=== PATIENT | male | born 1950 | race Caucasian/White ===

== ENCOUNTER 2017-05-03 07:59 | Day surgery (SDC) | payer MEDICARE, BC ==
[~2017-05-03 07:59] MED LIST: RINGERS SOLUTION,LACTATED 1,000 ML IV PRN
--- OUTSIDE RECORDS SUMMARY | 2017-05-03 08:03 | XMS REPORT | Continuity of Care Document ---
:1950 Author Organization [facility] [place] [place] [address] Care Team Providers Name Role Phone Renato Dobbins A Primary Care Provider [phone] Source Comments This disclosure is being made pursuant to the [employer] program and maynot contain all information available regarding this patient.[facility] Active Allergies and Adverse Reactions Allergen Noted Date Severity Reactions Comments Ibuprofen 10/22/2016 High Hives Current Medications Be aware that medications may not be up to date as of this document. Alwaysverify current medications with the patient. Prescription Sig. Disp. Refills Start Date End Date Status tiotropium (SPIRIVA) 18 Place 18 mcg into Active MCG inhalation capsule inhaler and inhale daily. omeprazole (PRILOSEC) Take 20 mg by mouth 2 Active 20 MG capsule (two) times daily. predniSONE (DELTASONE) Take 10 mg by mouth Active 10 MG tablet daily. Indications: Chronic Bronchitis with Asthma mometasone-formoterol Inhale 1 puff into Active (DULERA) 100-5 MCG/ACT the lungs 2 (two) AERO inhaler times daily. EPINEPHrine (EPIPEN 0.3 mg. 06/27/2016 Active 2-TEODORO) 0.3 MG/0.3ML SOAJ injection fluticasone (VERAMYST) use 2 Sprays into Active 27.5 MCG/SPRAY nasal both nostrils daily. spray montelukast (SINGULAIR) Take 10 mg by mouth. 09/03/2016 Active 10 MG tablet mometasone-formoterol Inhale into the 05/03/2016 Active (DULERA) 200-5 MCG/ACT lungs. AERO inhaler DULERA 200-5 MCG/ACT 10/15/2016 Active AERO inhaler predniSONE (DELTASONE) Take 7.5 mg (1 & 1/2 03/01/2016 Active 5 MG tablet pills) for 2 months, then 5mg (1 pills) until see Dr Polanco again clonazePAM (KLONOPIN) 08/31/2016 Active 0.5 MG tablet VERAMYST 27.5 MCG/SPRAY 08/28/2016 Active nasal spray FLUZONE HIGH-DOSE 0.5 08/30/2016 Active ML TORIE injection montelukast (SINGULAIR) 10/03/2016 Active 10 MG tablet predniSONE (DELTASONE) 09/02/2016 Active 5 MG tablet Active Problems Not on file Social History Tobacco Use Types Packs/Day Years Used Date Never Smoker Plan of Care Health Maintenance Due Date Last Done Comments Tetanus/Pertussis (1 - Tdap) 1968 Colonoscopy 1999 Well Adult Visit 1999 Zoster Vaccine 60+ 2009 Pneumococcal Low/Medium Risk 65+ (1 of 2 - PCV13) 2014 Influenza Immunization (#1) 2016 Results from Last 3 Months Not on file
--- OUTSIDE RECORDS SUMMARY | 2017-05-03 08:04 | XMS REPORT | Continuity of Care Document ---
:1950 Author Organization [facility] ([facility]) Address [address] [place] [address] Phone [phone] Care Team Providers Name Role Phone DobbinsRenato Primary Care Provider [phone] Source Comments This disclosure is being made pursuant to the Care Everywhere program, applicable federal and state laws, and may not contain all informaitonavailable regarding this patient.[facility] ([facility]) Active Allergies and Adverse Reactions Allergen Noted Date Severity Reactions Comments Ibuprofen 03/13/2016 Urticaria (Hives),Pruritus,Angioedema Current Medications Prescription Sig. Disp. Refills Start Date End Date Status EPIPEN 2-TEODORO 0.3 0.3 mg as needed. 06/27/2016 Active mg/0.3 mL injection syringe montelukast 10 mg Take 1 tablet (10 30 tablet 09/03/2016 Active tablet mg total) by mouth daily. predniSONE 5 mg Take 1 tablet (5 mg 30 tablet 5 11/01/2016 Active tablet total) by mouth daily. albuterol 90 Use 1-2 Puffs by 8.5 g 03/12/2017 Active mcg/Actuation inhaler inhalation every 4 hours as needed. fluticasone-vilantero Use 1 Puff by 60 Each 11 03/12/2017 Active l (BREO ELLIPTA) inhalation daily. 200-25 mcg/dose inhaler clonazePAM 0.5 mg Take 1 tablet (0.5 30 tablet 5 03/25/2017 Active tablet mg total) by mouth at bedtime. 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 Therefore, serum specific IgE was obtained to molds and returned negative. Intradermals to molds performed on 08/02/2014 were negative. A maxillofacial sinus CT on 04/13/2014 showed diffuse paranasal sinus opacification with areas of large density consistent with inspissated secretions. MRI of face/sinus with and without contrast on 09/2014 demonstrated diffuse sinonasal polyps with associated inspissated secretions suggestive of allergic fungal rhinosinusitis. Sep 2014: OwU=568, QdI=3376, TyU=134, JtK=318 WBC=14.9k, bognu=773. eos=10 on prednisone 12.5 mg daily Nasal polyps 03/22/2014 Laryngeal granuloma 03/22/2014 H/O sinus surgery 03/22/2014 Nasal septal deviation 03/22/2014 Anosmia 03/22/2014 MRSA (methicillin resistant staph aureus) culture positive 03/22/2014 Hx of tympanostomy tubes 03/22/2014 Resolved Problems Problem Noted Date Resolved Date Pre-operative cardiovascular examination 04/27/2014 09/11/2016 Most Recent Encounters Date Type Specialty Providers Description 04/17/2017 Telephone Med Pulmonary Akash Polanco, Chief Comp: Patient MD Concern 04/01/2017 Orders/Notes Neurology Blanca Harris MD 03/25/2017 Refill Neurology Ernie Cavanaugh, Dx: RBD (REM MD behavioral disorder) (Primary Dx) 03/20/2017 Office Visit Neurology Ernie Cavanaugh Dx: GERA (obstructive MD sleep apnea) (Primary Dx) 03/12/2017 Office Visit Pathology Akash Polanco, Dx: ABPA (allergic MD bronchopulmonary Lab Services, aspergillosis) Pfp 03/12/2017 Office Visit Med Pulmonary Akash Polanco, Dx: ABPA (allergic MD bronchopulmonary aspergillosis) (Primary Dx) 03/12/2017 Hospital Respiratory Therapy Default, Other Dx: ABPA (allergic Encounter Billg - Defo bronchopulmonary Katarina, Yasmine aspergillosis) MD Naseem 02/28/2017 Office Visit Otolaryngology Stephanie Blanca, Subj: Appointment John Lofton MD 02/28/2017 Office Visit Otolaryngology John Trotter Subj: Appointment MD Jaiden Mckinneyceled 01/31/2017 Office Visit Otolaryngology John Trotter Chief Comp: Patient MD Hank Reported Reason For Visit 01/31/2017 Office Visit Otolaryngology Stephanie Blanca Subj: Appointment John Lofton MD Immunizations Name Dates Previously Given Next Due Influenza, high dose 08/30/2016 Influenza, unspecified 08/18/2015,08/05/2014,08/18/2013 Pneumococcal Conjugate, PCV13 (Prevnar 13) 09/11/2016 Social History Tobacco Use Types Packs/Day Years Used Date Never Smoker Cigars 4 Smokeless Tobacco: Former User Quit: 07/17/2014 Tobacco Cessation:Counseling Given: Yes Comments:only chewed cigars, never smoked them per patient Alcohol Use Drinks/Week oz/Week Comments Yes 15 Cans of beer Last Filed Vital Signs Vital Sign Reading Time Taken Blood Pressure 115/68 03/20/2017 12:10 PM CDT Pulse 80 03/20/2017 12:10 PM CDT Temperature 37.1 C (98.8 F) 03/12/2017 9:53 AM CDT Respiratory Rate 16 03/12/2017 9:53 AM CDT Height 1.727 m (5' 7.99") 03/20/2017 12:10 PM CDT Weight 79 kg (174 lb 2.6 oz) 03/20/2017 12:10 PM CDT Body Mass Index 26.49 03/20/2017 12:10 PM CDT Oxygen Saturation 86% 03/20/2017 12:10 PM CDT Plan of Care Date Type Specialty Providers Description 09/10/2017 Appointment [facility] Akash Polanco MD Subj: Appointment [address] [place] [address] [phone] (Fax) 10/01/2017 Appointment Otolaryngology Donny Gamboa MD Subj: Appointment [address] [place] [address] [phone] (Fax) Health Maintenance Due Date Last Done Comments HCV Screening 1950 Hepatitis B Vaccine (1 of 3 1950 - Primary Series) Tdap Vaccine 1960 Lipid Disorder Screening 1967 Td Vaccine 1967 Colonoscopy 1999 Zoster Vaccine 2009 Pneumococcal Vaccine (2 of 2 09/11/2017 09/11/2016 - PPSV23) Influenza Vaccine: Seasonal Completed 08/30/2016, Additional history exists 08/18/2015, 08/05/2014 Results from Last 3 Months DIFFERENTIAL (03/12/2017 10:44 AM) Component Value Range % Neutrophils-Auto Diff 80.4 % Neutrophils-Auto Diff 8120(H) 2880-5972 /MM3 % Lymphocytes-Auto Diff 12.7 % Lymphocytes-Auto Diff 9119 926-4670 /MM3 % Monocytes-Auto Diff 5.2 % Monocytes-Auto Diff 530 130-860 /MM3 % Eosinophils-Auto Diff 0.5 % Eosinophils-Auto Diff 50 40-390 /MM3 % Basophils 0.4 % Basophils-Auto Diff 40 10-136 /MM3 % Immature Granulocytes-Auto Diff 0.8 % Immature Granulocytes-Auto Diff 80 /MM3 Specimen Whole Blood CBC (COMPLETE BLOOD COUNT) (03/12/2017 10:44 AM) Component Value Range WBC Count 10.1 3.7-10.5 K/MM3 RBC Count 4.98 4.50-6.20 M/MM3 Hemoglobin 15.7 13.2-17.7 g/dL Hematocrit 45 40-52 % MCV (Mean Corpuscular Volume) 90 82-99 FL MCH (Mean Corpuscular Hemoglobin) 32 25-35 PG MCHC (Mean Corpuscular Hemoglobin Concentration) 35 32-36 % Platelet Count 258 150-400 K/MM3 MPV (Mean Platelet Volume) 10.4 9.4-12.3 FL RBC Dist Width-STD 40.7 35.1-43.9 FL RBC Distrib Width 12.3 9.0-14.5 % Nucleated RBC 0 /100 WBC Specimen Whole Blood C-REACTIVE PROTEIN (03/12/2017 10:44 AM) Component Value Range CRP (C-Reactive Protein) <0.5 <=0.5 mg/dL Specimen Blood CBC WITH DIFFERENTIAL (03/12/2017 10:44 AM) Specimen Whole Blood Narrative The following orders were created for panel order CBC WITH DIFFERENTIAL. Procedure Abnormality Status --------- ------ CBC (COMPLETE BLOOD COUNT)[[id number]] Final result DIFFERENTIAL[[id number]] AbnormalFinal result Please view results for these tests on the individual orders. IGE (03/12/2017 10:44 AM) Component Value Range IgE 2831.0(H) 0.0-100.0 IU/mL Specimen Blood PULMONARY FUNCTION TEST (PFT) (03/12/2017 9:08 AM) Component Value Range FVC Predicted 4.03 0.05-9.99 Liters FVC Post 3.94 0 - 12 Liters FVC % Predicted Post 98 0-300 % FEV1 Predicted 2.98 0.05-9.99 Liters FEV1 Post BD 2.97 0 - 12 Liters FEV1 % Pred Post 99 0-300 % FEV1/FVC Predicted 74 1-99 % FEV1/FVC Post 75 0 - 12 % FEF 25-75% Predicted 2.34 0-12 L/sec FEF 25-75% Post 2.35 0-12 L/sec FEF 25-75% %Post Predicted 100 0-300 % PEF Predicted 7.97 0-18 L/sec PEF Post BD 9.46 0-18 L/sec PEF %Post Predicted 119 0-300 % PIF POST BD 6.32 0-18 L/sec MVV Predicted 119 0-300 L/min VC PREDICTED 4.03 0.05-9.99 Liters TLC Predicted 5.81 0.05-11.99 Liters RV Predicted 2.28 0.05-9.99 Liters RV/TLC Predicted 40 0-300 % FRC PL Predicted 3.27 0.05-9.99 Liters DLCO Predicted 25.5 0.05-99.99 mL/mmHg/min DLCO ADJ Predicted 25.5 1-2 mL/mmHg/min PI MAX Predicted 106 cmH2O
[2017-05-03] MEDS ORDERED: RINGERS SOLUTION,LACTATED 1,000 ML IV ONE (08:23)
--- NOTE | 2017-05-03 09:50 | OR ---
Operative Report - Dictated Report Narrative: Date 05/03/2017 Preoperative diagnosis: Screening colonoscopy postoperative diagnosis: Diminutive polyp at hepatic flexure, polyp at 35 cm Procedure: Total colonoscopy, biopsy 2 Staff surgeon: Erasmo Mckenzie MD Anesthesia Mac per CLERK OF COURT EBL minimal Specimen polyp at hepatic flexure, polyp at 35 cm Description of procedure: After informed consent and appropriate sedation the patient was placed in the left lateral decubitus position. A flexible fiberoptic video colonoscope was introduced and advanced under direct vision without difficulty to the cecum. The usual landmarks were identified. Preparation was excellent and excellent views were obtained. The findings were a normal cecum and ascending colon, there was a diminutive polyp at the hepatic flexure which was biopsied and completely removed with this cold forceps biopsy, normal transverse colon and splenic flexure, descending colon, sigmoid colon, a small polyp was encountered at 35 cm and was biopsied with cold forceps, normal rectum and retroflex view. The patient tolerates procedure well without apparent complications or discharge from the endoscopy suite in stable condition end of dictation
[2017-05-03 10:53] VITALS: BP 123/73
== END 2017-05-03 08:00 | disposition home or self-care (01) ==
LOC: AMB 07:59
PROVIDERS: ATTEND Specialist
PROC: 0DBE8ZX Excision of Large Intestine, Via Natural or Artificial Opening Endoscopic, Diagnostic (ICD-10-PCS; principal; 2017-05-03 08:55)
DX: K63.5 Polyp of colon (principal); J44.9 Chronic obstructive pulmonary disease, unspecified; E78.5 Hyperlipidemia, unspecified; N40.0 Benign prostatic hyperplasia without lower urinary tract symptoms; G47.33 Obstructive sleep apnea (adult) (pediatric); Z87.891 Personal history of nicotine dependence; Z68.25 Body mass index [BMI] 25.0-25.9, adult

== ENCOUNTER 2017-08-28 11:57 | Day surgery (SDC) | payer MEDICARE, BC ==
[~2017-08-28 11:57] MED LIST changes: +NORMAL SALINE 1,000 ML IV PRN; -RINGERS SOLUTION,LACTATED 1,000 ML IV PRN
[2017-08-28] MEDS ORDERED: NORMAL SALINE 1,000 ML IV ONE (14:04)
--- NOTE | 2017-08-28 15:04 | OR ---
Operative Report - Dictated Report Narrative: Procedure performed: TRUS guided prostate biopsy Anesthesia: IV/Mac Preoperative diagnosis : elevated PSA Postoperative diagnosis: Same Description of procedure: Preoperative antibiotics administered. Consent obtained. Patient positioned in the left lateral decubitus position. Probe inserted. Measurements taken. Prostate volume: 25 grams Biopsies were then obtained from either side directed laterally from the base, mid, and apical portions of the gland. Total biopsies right: 6 Total biopsies left: 6 Findings: There were 2 noticeable hyperechoic foci one was mid gland, medial on the right. The other was left side apical. At least 1 biopsy was directed at either lesion. Patient tolerated well. Will return to clinic in 7-10 days for counseling or 6 months for repeat PSA, depending on biopsy results. EBL: 0cc Specimen: prostate Condition: tolerated procedure
[2017-08-28 18:33] VITALS: BP 126/70
== END 2017-08-28 11:58 | disposition home or self-care (01) ==
LOC: AMB 11:57
PROVIDERS: ATTEND Urology
PROC: 0V903ZX Drainage of Prostate, Percutaneous Approach, Diagnostic (ICD-10-PCS; principal; 2017-08-28 14:30)
DX: C61 Malignant neoplasm of prostate (principal); N41.1 Chronic prostatitis; N40.1 Benign prostatic hyperplasia with lower urinary tract symptoms; R39.11 Hesitancy of micturition; R35.1 Nocturia; J44.9 Chronic obstructive pulmonary disease, unspecified; Z68.26 Body mass index [BMI] 26.0-26.9, adult; Z87.891 Personal history of nicotine dependence